=== PATIENT | male | born 1995 | race Two or more races ===

== ENCOUNTER 2017-09-19 13:05 | Emergency (ER) | payer OTHER | END 2017-09-19 14:32 | disposition home or self-care (01) | LOC: M ED 13:05 | DX: H10.023 Other mucopurulent conjunctivitis, bilateral (principal) | CPT/HCPCS: 99282 ==

== ENCOUNTER 2018-01-27 07:43 | Emergency (ER) | payer OTHER ==
[2018-01-27 08:57] LABS: BASO # 0.1 10^3/uL (0.0-0.2); BASO % 0.8 % (0.0-1.0); EOS # 0.4 10^3/uL (0.0-0.50); HEMATOCRIT 41.2 % (42.0-52.0); IMMATURE GRANULOCYTE % 0.3 % (0-3.0); LYMPH # 3.1 10^3/uL (1.5-6.5); LYMPH % 42.1 % (24.0-44.0); MEAN CORPUSCULAR HEMOGLOBIN 29.4 pg (27.0-33.0); MEAN CORPUSCULAR VOLUME 86.4 fl (80.0-96.0); MONO # 0.4 10^3/uL (0.0-0.8); MONO % 5.1 % (0.0-5.0); NEUTROPHILS # 3.4 10^3/uL (1.8-7.7); NEUTROPHILS % 46.7 % (36.0-66.0); PLATELET COUNT, AUTOMATED 191 10^3/uL (150-450); RED BLOOD COUNT 4.77 10^6/uL (4.30-6.10); RED CELL DISTRIBUTION WIDTH 12.1 % (11.5-14.5); WHITE BLOOD COUNT 7.2 10^3/uL (4.0-10.0)
[2018-01-27 09:31] LABS: ANION GAP 10 MEQ/L (8-16); BLOOD UREA NITROGEN 13 MG/DL (7-18); CALCIUM LEVEL 8.5 MG/DL (8.5-10.1); CARBON DIOXIDE LEVEL 26 MEQ/L (21-32); CHLORIDE LEVEL 106 MEQ/L (98-107); GLOMERULAR FILTRATION RATE > 60.0 (>60); GLUCOSE, FASTING 98 MG/DL (70-100); POTASSIUM SERUM 4.3 MEQ/L (3.5-5.1); SODIUM LEVEL 142 MEQ/L (136-145)
[2018-01-27] MEDS: MAGNESIUM CITRATE 300 ML BTL PO (10:15)
== END 2018-01-27 10:30 | disposition home or self-care (01) ==
LOC: M ED 07:43
DX: K59.00 Constipation, unspecified (principal); Z72.0 Tobacco use
CPT/HCPCS: 74019

== ENCOUNTER 2018-03-10 08:59 | Emergency (ER) | payer OTHER | END 2018-03-10 09:58 | disposition home or self-care (01) | LOC: M ED 08:59 | DX: S50.812A Abrasion of left forearm, initial encounter (principal); V49.49XA Driver injured in collision with other motor vehicles in traffic accident, initial encounter; Y92.410 Unspecified street and highway as the place of occurrence of the external cause | CPT/HCPCS: 99284 ==

== ENCOUNTER 2019-07-20 19:03 | Emergency (ER) | payer OTHER ==
[~2019-07-20] VITALS: Ht 177.8 cm; Wt 111.4 kg
[~2019-07-20 19:03] MED LIST: CIPR0.3S OU; MIRA3350 PO
[2019-07-20 19:04] VITALS: BP 177/93
[2019-07-20] MEDS ORDERED: OXYC1TAB23 PO (19:11)
[2019-07-20] MEDS ORDERED: IBUP80TA PO (19:11)
[2019-07-20] MEDS ORDERED: AUGMENTIN 875 MG TAB PO ONE (20:00)
[2019-07-20] MEDS ORDERED: PERC5TAB12 PO (20:04)
[2019-07-20] MEDS ORDERED: AUGM875T28 PO (20:16)
== END 2019-07-20 20:36 | disposition home or self-care (01) ==
LOC: M ED 19:03
DX: K08.89 Other specified disorders of teeth and supporting structures (principal); Z98.818 Other dental procedure status